=== PATIENT | male | born 1960 | race Caucasian/White ===

== ENCOUNTER 2021-10-31 11:52 | Emergency (ER) | payer MEDICARE, MEDICAID ==
[~2021-10-31] VITALS: Ht 190.5 cm; Wt 154.6 kg
[2021-10-31 12:52] LABS: BASOPHILS # (AUTO) 0.1 X10'3 (0-0.2); EOSINOPHILS # (AUTO) 0.4 X10'3 (0-0.9); EOSINOPHILS % (AUTO) 4.2 % (0-6); HEMATOCRIT 51.8 % (42.0-52.0); HEMOGLOBIN 17.6 g/dl (14.0-17.9); LYMPHOCYTES # (AUTO) 2.1 X10'3 (1.1-4.8); LYMPHOCYTES % (AUTO) 22.8 % (21-51); MEAN CORPUSCULAR HEMOGLOBIN 29.8 PG (27.0-31.0); MEAN CORPUSCULAR HGB CONC 33.9 g/dL (33.0-36.5); MEAN CORPUSCULAR VOLUME 87.9 FL (78-98); MEAN PLATELET VOLUME 6.7 FL (7.4-10.4); MONOCYTES # (AUTO) 0.9 X10'3 (0-0.9); MONOCYTES % (AUTO) 9.2 % (2-12); NEUTROPHILS # (AUTO) 5.9 X10'3 (1.8-7.7); NEUTROPHILS % (AUTO) 62.8 % (42-75); PLATELET COUNT 438 X10'3 (140-440); RED BLOOD COUNT 5.89 X10'6 (4.70-6.10); RED CELL DISTRIBUTION WIDTH 14.2 % (11.5-14.5); WHITE BLOOD COUNT 9.4 X10'3 (4.5-11.0)
[2021-10-31 13:04] LABS: ALANINE AMINOTRANSFERASE 52 U/L (12-78); ALKALINE PHOSPHATASE 73 IU/L (46-116); ANION GAP 11 (8-16); ASPARTATE AMINO TRANSFERASE 32 U/L (10-37); BILIRUBIN,TOTAL 0.5 MG/DL (0.1-1.0); BLOOD UREA NITROGEN 11 MG/DL (7-18); BUN/CREATININE RATIO 10.9 (5.4-32.0); CALCIUM 9.5 MG/DL (8.5-10.1); CHLORIDE 102 MMOL/L (99-107); CREATININE 1.01 MG/DL (0.60-1.10); GLUCOSE 104 MG/DL (70-104); LIPASE 118 U/L (73-393); POTASSIUM 4.6 MMOL/L (3.5-5.1); SODIUM 135 MMOL/L (135-145); TOTAL CARBON DIOXIDE 22.2 MMOL/L (24-32); TOTAL PROTEIN 8.2 G/DL (6.4-8.2); eGFR 76 ML/MIN
[2021-10-31 13:43] LABS: CLARITY,URINE CLEAR (Clear); COLOR,URINE YELLOW (Yellow); GLUCOSE, URINE NEGATIVE (Neg); KETONES,URINE NEGATIVE (Neg); LEUKOCYTE ESTERASE ,URINE NEGATIVE (Neg); NITRITES, URINE NEGATIVE (Neg); OCCULT BLOOD,URINE NEGATIVE (Neg); PROTEIN,URINE NEGATIVE (Neg); UROBILINOGEN,URINE 0.2 E.U/dL (0.2-1.0)
[2021-10-31 13:50] LABS: UA COLLECTION TYPE VOIDED
--- NOTE | 2021-10-31 14:20 | NUR ---
FLORES ALONSO AT BEDSIDE.
[2021-10-31] MEDS ORDERED: ondansetron 4mg rapidly disintigrating tab PO ONE (14:25)
[2021-10-31] MEDS ORDERED: HYDROcodone/acetaminophen 5mg/325mg tablet PO ONE (14:25)
[2021-10-31 14:57] VITALS: BP 123/103
== END 2021-10-31 15:04 | disposition home or self-care (01) ==
LOC: ER 11:53
DX: M54.50 Low back pain, unspecified (principal); Z90.49 Acquired absence of other specified parts of digestive tract
CPT/HCPCS: 36415; 80053; 81003; 83690; 85025; 99284

== ENCOUNTER 2022-04-13 04:55 | Emergency (ER) | payer MEDICARE, MEDICAID ==
[~2022-04-13] VITALS: Ht 193 cm; Wt 154.6 kg
--- NOTE | 2022-04-13 05:57 | NUR ---
Patient asleep, snoring, resting comfortably in bed.
[2022-04-13] MEDS ORDERED: HYDROcodone/acetaminophen 5mg/325mg tablet PO ONE (06:15)
[2022-04-13] MEDS ORDERED: IBUP-1985 PO (06:21)
[2022-04-13] MEDS ORDERED: TRAM1TAB7 PO (06:21)
--- NOTE | 2022-04-13 07:12 | NUR ---
pt able to transfer into wheelchair. Wheeled to bathroom. Pt unable to sit down due to pain and requested to be taken back to room. Patient complaining of pain and requesting to go home because he is uncomfortable and would be more comfortable at home. Dr. Villa updated.
[2022-04-13] MEDS ORDERED: morphine 4 MG/ML inj SYRINge IM ONE (07:35)
[2022-04-13 07:51] LABS: BASOPHILS # (AUTO) 0.1 X10'3 (0-0.2); BASOPHILS % (AUTO) 0.8 % (0-1); EOSINOPHILS # (AUTO) 0.2 X10'3 (0-0.9); EOSINOPHILS % (AUTO) 2.1 % (0-6); HEMATOCRIT 44.3 % (42.0-52.0); HEMOGLOBIN 15.1 g/dl (14.0-17.9); LYMPHOCYTES # (AUTO) 1.6 X10'3 (1.1-4.8); LYMPHOCYTES % (AUTO) 15.9 % (21-51); MEAN CORPUSCULAR HEMOGLOBIN 30.2 PG (27.0-31.0); MEAN CORPUSCULAR VOLUME 88.8 FL (78-98); MEAN PLATELET VOLUME 7.3 FL (7.4-10.4); MONOCYTES # (AUTO) 0.6 X10'3 (0-0.9); MONOCYTES % (AUTO) 6.1 % (2-12); NEUTROPHILS # (AUTO) 7.6 X10'3 (1.8-7.7); NEUTROPHILS % (AUTO) 75.1 % (42-75); PLATELET COUNT 392 X10'3 (140-440); RED BLOOD COUNT 4.99 X10'6 (4.70-6.10); RED CELL DISTRIBUTION WIDTH 15.1 % (11.5-14.5); WHITE BLOOD COUNT 10.1 X10'3 (4.5-11.0)
[2022-04-13 08:17] LABS: ALANINE AMINOTRANSFERASE 85 U/L (12-78); ALBUMIN 3.9 G/DL (3.4-5.0); ALBUMIN/GLOBULIN RATIO 1.1 (1.1-1.5); ALKALINE PHOSPHATASE 69 IU/L (46-116); ANION GAP 10 (8-16); ASPARTATE AMINO TRANSFERASE 69 U/L (10-37); BILIRUBIN,TOTAL 0.4 MG/DL (0.1-1.0); BLOOD UREA NITROGEN 14 MG/DL (7-18); BUN/CREATININE RATIO 10.9 (5.4-32.0); CALCIUM 9.3 MG/DL (8.5-10.1); CHLORIDE 101 MMOL/L (99-107); CREATININE 1.29 MG/DL (0.60-1.10); POTASSIUM 4.4 MMOL/L (3.5-5.1); SODIUM 137 MMOL/L (135-145); TOTAL CARBON DIOXIDE 26.4 MMOL/L (24-32); TOTAL PROTEIN 7.6 G/DL (6.4-8.2); eGFR 57 ML/MIN
[2022-04-13 08:20] LABS: GLUCOSE 122 MG/DL (70-104)
--- NOTE | 2022-04-13 08:21 | NUR ---
patients states pain is tolerable at this time. Refusing CT scan. States he does not think he would be able to tolerate lying flat. Dr. Villa aware.
[2022-04-13 08:51] VITALS: BP 130/92
== END 2022-04-13 09:08 | disposition home or self-care (01) ==
LOC: ER 04:55
DX: M54.31 Sciatica, right side (principal); G89.29 Other chronic pain; M25.551 Pain in right hip; J44.9 Chronic obstructive pulmonary disease, unspecified; F17.200 Nicotine dependence, unspecified, uncomplicated; Z98.890 Other specified postprocedural states; Z90.49 Acquired absence of other specified parts of digestive tract; Z79.899 Other long term (current) drug therapy
CPT/HCPCS: 36415; 80053; 85025; 96372; 99284; J2270

== ENCOUNTER 2022-04-17 23:16 | Emergency (ER) | payer MEDICARE, MEDICAID ==
[~2022-04-17] VITALS: Ht 193 cm; Wt 210.0 kg
[~2022-04-17 23:16] MED LIST: IBUP-1985 PO; TRAM1TAB7 PO
[2022-04-18] MEDS ORDERED: normal saline 1000ml 1,000 ML IV ONE (00:25)
[2022-04-18] MEDS ORDERED: orphenadrine citrate 60mg/2ml inj. IM ONE (00:25)
[2022-04-18] MEDS ORDERED: LORazepam 2 mg/ml vial IV ONE ×3 (00:25→05:00)
[2022-04-18] MEDS ORDERED: fentaNYL/PF 50MCG/1 ML 2ML syringe IV ONE (00:25)
[2022-04-18] MEDS ORDERED: acetaminophen 325mg tablet PO ONE (00:25)
[2022-04-18 00:52] LABS: BASOPHILS # (AUTO) 0.1 X10'3 (0-0.2); BASOPHILS % (AUTO) 0.9 % (0-1); EOSINOPHILS # (AUTO) 0.3 X10'3 (0-0.9); EOSINOPHILS % (AUTO) 2.6 % (0-6); HEMATOCRIT 45.3 % (42.0-52.0); LYMPHOCYTES # (AUTO) 1.6 X10'3 (1.1-4.8); LYMPHOCYTES % (AUTO) 13.3 % (21-51); MEAN CORPUSCULAR HEMOGLOBIN 29.6 PG (27.0-31.0); MEAN CORPUSCULAR HGB CONC 33.2 g/dL (33.0-36.5); MEAN CORPUSCULAR VOLUME 89.1 FL (78-98); MONOCYTES # (AUTO) 0.8 X10'3 (0-0.9); MONOCYTES % (AUTO) 6.9 % (2-12); NEUTROPHILS % (AUTO) 76.3 % (42-75); PLATELET COUNT 351 X10'3 (140-440); RED BLOOD COUNT 5.09 X10'6 (4.70-6.10); WHITE BLOOD COUNT 11.8 X10'3 (4.5-11.0)
[2022-04-18 01:05] LABS: ALANINE AMINOTRANSFERASE 61 U/L (12-78); ALBUMIN 3.9 G/DL (3.4-5.0); ALKALINE PHOSPHATASE 66 IU/L (46-116); ANION GAP 12 (8-16); ASPARTATE AMINO TRANSFERASE 61 U/L (10-37); BILIRUBIN,TOTAL 0.5 MG/DL (0.1-1.0); BLOOD UREA NITROGEN 16 MG/DL (7-18); BUN/CREATININE RATIO 12.4 (5.4-32.0); CALCIUM 9.4 MG/DL (8.5-10.1); CHLORIDE 102 MMOL/L (99-107); CREATININE 1.29 MG/DL (0.60-1.10); GLUCOSE 115 MG/DL (70-104); SODIUM 138 MMOL/L (135-145); TOTAL CARBON DIOXIDE 24.1 MMOL/L (24-32); TOTAL PROTEIN 7.8 G/DL (6.4-8.2); eGFR 57 ML/MIN
[2022-04-18 01:18] LABS: POTASSIUM 4.5 MMOL/L (3.5-5.1)
[2022-04-18] MEDS ORDERED: morphine 4 MG/ML inj SYRINge IV ONE (02:50)
[2022-04-18 04:18] LABS: CLARITY,URINE CLEAR (Clear); COLOR,URINE YELLOW (Yellow); GLUCOSE, URINE NEGATIVE (Neg); KETONES,URINE NEGATIVE (Neg); LEUKOCYTE ESTERASE ,URINE NEGATIVE (Neg); NITRITES, URINE NEGATIVE (Neg); OCCULT BLOOD,URINE NEGATIVE (Neg); PH,URINE 6.5 (4.8-8.0); PROTEIN,URINE NEGATIVE (Neg); UROBILINOGEN,URINE 0.2 E.U/dL (0.2-1.0)
[2022-04-18 04:25] LABS: UA COLLECTION TYPE URINAL
[2022-04-18 04:34] LABS: URINE AMPHETAMINE SCREEN POSITIVE (Neg); URINE BARBITUATE SCREEN NEGATIVE (Neg); URINE BENZODIAZEPINES SCREEN NEGATIVE (Neg); URINE CANNABINOID SCREEN NEGATIVE (Neg); URINE COCAINE SCREEN NEGATIVE (Neg); URINE METHADONE SCREEN NEGATIVE (Neg); URINE OPIATE SCREEN NEGATIVE (Neg); URINE PHENCYCLIDINE SCREEN NEGATIVE (Neg)
[2022-04-18] MEDS ORDERED: diphenhydrAMINE 50 mg/ml inj IV ONE (05:00)
--- NOTE | 2022-04-18 05:15 | NUR ---
Patient scooted himself to edge of bed, became frustrated after demanding staff to help him back in bed. Staff explained to him that we were getting him a hospital bed and required more help to move him. Patient becae aggrivated and became yelling and cussing at nurse and other staff. Security paged and standing outside the room. Patient moved safely to hospital bed and educated on inappropriate behavior.
[2022-04-18] MEDS ORDERED: ketorolac trometh. 30mg/ml inj. IV ONE (05:40)
[2022-04-18] MEDS ORDERED: HYDR-3965 PO (05:56)
[2022-04-18] MEDS ORDERED: CYCL-1 PO (05:56)
--- NOTE | 2022-04-18 07:16 | NUR ---
PT IS SNORING VERY LOUDLY AND WONT WAKE UP EASILY. VSS DEFERRED UNTIL PT WAKES UP. DOES NOT APPEAR TO BE IN DISTRESS.
--- NOTE | 2022-04-18 07:57 | NUR ---
electroencephalograph technologist called. Pt's weight is too great to be able to get an MRI here or at [facility]. Pt may be able to get MRI at [facility] open MRI. Scribe informed.
[2022-04-18 11:33] VITALS: BP 138/104
== END 2022-04-18 12:58 | disposition home or self-care (01) ==
LOC: ER 23:16
DX: G89.29 Other chronic pain (principal); M54.59 Other low back pain; J44.9 Chronic obstructive pulmonary disease, unspecified; Z90.49 Acquired absence of other specified parts of digestive tract; Z79.899 Other long term (current) drug therapy
CPT/HCPCS: 36415; 80053; 80305; 81003; 85025; 96361; 96372; 96374; 96375; 96376; 99285; J1200; J1885; J2060; J2270; J2360; J3010; J7030

== ENCOUNTER 2022-04-22 06:06 | Emergency (ER) | payer MEDICARE, MEDICAID ==
[~2022-04-22] VITALS: Ht 193 cm; Wt 181.8 kg
[~2022-04-22 06:06] MED LIST changes: +CYCL-1 PO; +HYDR-3965 PO
[2022-04-22] MEDS ORDERED: LORazepam 1 MG tablet PO ONE (06:35)
[2022-04-22] MEDS ORDERED: oxyCODONE/APAP 10/325mg tablet PO ONE (06:35)
[2022-04-22 08:12] VITALS: BP 163/113
--- NOTE | 2022-04-22 08:12 | NUR ---
Pt is asleep sonorously
--- NOTE | 2022-04-22 10:30 | NUR ---
Multiple attempts by RN to rouse pt, pt is still soundly asleep
--- NOTE | 2022-04-22 10:35 | NUR ---
Pt's mother Ilda [phone] called to advise to call her when pt is being picked up by ambulance
--- NOTE | 2022-04-22 11:24 | NUR ---
Moved pt to [facility], pt is still sound asleep, not rousable for ambulance order picker
== END 2022-04-22 13:28 | disposition home or self-care (01) ==
LOC: ER 06:07
DX: M54.50 Low back pain, unspecified (principal); G89.29 Other chronic pain; J44.9 Chronic obstructive pulmonary disease, unspecified; E78.00 Pure hypercholesterolemia, unspecified; Z90.49 Acquired absence of other specified parts of digestive tract
CPT/HCPCS: 99284; A4615

== ENCOUNTER 2022-11-22 06:41 | Inpatient (IN) | payer MEDICARE, MEDICAID ==
[~2022-11-22] VITALS: Ht 193 cm; Wt 157.7 kg
[~2022-11-22 06:41] MED LIST changes: -HYDR-3965 PO
[2022-11-22] MEDS ORDERED: vancomycin/NS 1 GM ADD-VANTAGE 250 ML IV ONE (07:05)
[2022-11-22] MEDS ORDERED: piperacillin/tazo 3.375gm/50ml 50 ML IV ONE (07:05)
[2022-11-22 08:01] LABS: BASOPHILS # (AUTO) 0.1 X10'3 (0-0.2); BASOPHILS % (AUTO) 0.7 % (0-1); EOSINOPHILS # (AUTO) 0.4 X10'3 (0-0.9); EOSINOPHILS % (AUTO) 4.8 % (0-6); HEMATOCRIT 43.3 % (42.0-52.0); HEMOGLOBIN 13.9 g/dl (14.0-17.9); LYMPHOCYTES # (AUTO) 1.1 X10'3 (1.1-4.8); LYMPHOCYTES % (AUTO) 13.5 % (21-51); MEAN CORPUSCULAR HEMOGLOBIN 28.9 PG (27.0-31.0); MEAN CORPUSCULAR HGB CONC 32.1 g/dL (33.0-36.5); MEAN CORPUSCULAR VOLUME 89.9 FL (78-98); MEAN PLATELET VOLUME 6.8 FL (7.4-10.4); MONOCYTES # (AUTO) 0.7 X10'3 (0-0.9); NEUTROPHILS # (AUTO) 6.2 X10'3 (1.8-7.7); PLATELET COUNT 342 X10'3 (140-440); RED BLOOD COUNT 4.81 X10'6 (4.70-6.10); RED CELL DISTRIBUTION WIDTH 16.2 % (11.5-14.5); WHITE BLOOD COUNT 8.5 X10'3 (4.5-11.0)
[2022-11-22 08:22] LABS: ALANINE AMINOTRANSFERASE 45 U/L (12-78); ALBUMIN 3.1 G/DL (3.4-5.0); ALBUMIN/GLOBULIN RATIO 0.7 (1.1-1.5); ALKALINE PHOSPHATASE 76 IU/L (46-116); ANION GAP 9 (8-16); ASPARTATE AMINO TRANSFERASE 39 U/L (10-37); BILIRUBIN,TOTAL 0.3 MG/DL (0.1-1.0); BLOOD UREA NITROGEN 13 MG/DL (7-18); BUN/CREATININE RATIO 12.6 (10.0-20.0); CHLORIDE 103 MMOL/L (99-107); CREATININE 1.03 MG/DL (0.60-1.10); GLUCOSE 112 MG/DL (70-104); POTASSIUM 4.1 MMOL/L (3.5-5.1); SODIUM 135 MMOL/L (135-145); TOTAL CARBON DIOXIDE 23.1 MMOL/L (24-32); TOTAL PROTEIN 7.3 G/DL (6.4-8.2); eCRCL 94 ML/MIN; eGFR 74 ML/MIN
[2022-11-22 08:32] LABS: PRO BRAIN NATRIURETIC PEPTIDE < 30 PG/ML (0-125)
[2022-11-22] MEDS ORDERED: acetaminophen 325mg tablet PO ONE (08:35)
--- NOTE | 2022-11-22 11:11 | NUR ---
Unable to obtain consistent vascular access due to patient's vasculature. Tracie coleman late this morning. Pharmacy and MD aware. Vanco given as scheduled.
[2022-11-22] MEDS ORDERED: potassium Cl 20 mEq SR tablet PO PRN ×2 (11:40)
[2022-11-22] MEDS ORDERED: acetaminophen 325mg tablet PO PRN ×2 (11:40)
[2022-11-22] MEDS ORDERED: HYDROmorphone/PF 0.2 MG/ML SYRINGE IV PRN (11:40)
[2022-11-22] MEDS: normal saline 1000ml 1,000 ML IV SCH ×2 (11:40→17:59)
[2022-11-22] MEDS ORDERED: magnesium hydroxide 30ml (MOM) UD suspension PO PRN (11:40)
[2022-11-22] MEDS ORDERED: magnesium Cl slow-release 64mg tablet PO PRN (11:40)
[2022-11-22] MEDS ORDERED: acetaminophen 650mg rectal suppository RC PRN (11:40)
[2022-11-22] MEDS ORDERED: mag hydrox/Alum hydrox/simeth 30ml oral suspension PO PRN (11:40)
[2022-11-22] MEDS ORDERED: magnesium 4gm in 100ml NS 100 ML IV PRN (11:40)
[2022-11-22] MEDS ORDERED: ondansetron 4mg rapidly disintigrating tab PO PRN (11:40)
[2022-11-22] MEDS ORDERED: magnesium 2GM in 50ml NS 50 ML IV PRN (11:40)
[2022-11-22] MEDS ORDERED: HYDROcodone/acetaminophen 5mg/325mg tablet PO PRN (11:40)
[2022-11-22] MEDS ORDERED: potassium Cl 40MEQ/1/2NS 520ml 520 ML IV PRN (11:40)
[2022-11-22] MEDS ORDERED: ondansetron/PF 4mg/2ml inj IV PRN (11:40)
--- NOTE | 2022-11-22 12:10 | NUR ---
Pt given snack of water and jayson crackers.
[2022-11-22 12:43] LABS: HEMOGLOBIN A1C 6.6 % (4.5-6.2)
--- NOTE | 2022-11-22 12:55 | NUR ---
Echo at bedside.
[2022-11-22 13:05] LABS: CHOL/HDL RATIO 4.2 (0.00-4.99); CHOLESTEROL 176 MG/DL (0-200); HDL CHOLESTEROL 42 MG/DL (35-60); LDL CHOLESTEROL 106 MG/DL (50-100); PRO BRAIN NATRIURETIC PEPTIDE 114 PG/ML (0-125); THYROID STIMULATING HORMONE 6.18 ulU/ml (0.34-4.50); TRIGLYCERIDES 178 MG/DL (20-135)
--- NOTE | 2022-11-22 14:00 | NUR ---
PT ASKING TO LEAVE, I EXPLAINED THE RISKS OF LEAVING AMA UP TO AND INCLUDING . PT VERALIZED UNDERSTANDING AND STATED "I HAVE A HOME HEALTH NURSE AND CAN GET ANTIBIOTICS", REPORT GIVEN TO TORRIE BOWMAN, PRIMARY NURSE
--- NOTE | 2022-11-22 14:11 | NUR ---
Pt would like to leave AMA. Pt is receiving IV ABX for bilat leg cellulitis. Pt educated regarding need for continued IV antibiotic therapy. Pt stating, "This isn't the first time I've left against medical advice". MD Wade and Dr. Pope paged regarding situation.
[2022-11-22] MEDS: vancomycin/NS 1 GM ADD-VANTAGE 250 ML IV SCH ×2 (14:38→23:00)
[2022-11-22] MEDS: HYDROmorphone inj. 0.5 MG/0.5 ML DISP.SYRIN IV PRN (14:40)
[2022-11-22 15:24] LABS: BILIRUBIN,URINE NEGATIVE (Neg); CLARITY,URINE CLEAR (Clear); COLOR,URINE YELLOW (Yellow); GLUCOSE, URINE NEGATIVE (Neg); KETONES,URINE NEGATIVE (Neg); LEUKOCYTE ESTERASE ,URINE NEGATIVE (Neg); NITRITES, URINE NEGATIVE (Neg); OCCULT BLOOD,URINE NEGATIVE (Neg); PH,URINE 5.5 (4.8-8.0); PROTEIN,URINE NEGATIVE (Neg); UROBILINOGEN,URINE 0.2 E.U/dL (0.2-1.0)
[2022-11-22 15:27] LABS: UA COLLECTION TYPE CLN CATCH MIDSTREAM
--- NOTE | 2022-11-22 16:50 | NUR ---
Patient in room ORTHO 4018. I have received report from GRACIE Walls and had the opportunity to ask questions and assume patient care.
[2022-11-22 17:00] VITALS: BP 134/86; PULSE 78; RESP 15; RESP 18; TEMP 97.4; O2SAT 94
[2022-11-22] MEDS: K and/or MAG REPLACEMENT MC SCH (17:37)
--- NOTE | 2022-11-22 18:10 | NUR ---
Patient in room ORTHO 4018. I have received report from GRACIE Cronin and had the opportunity to ask questions and assume patient care.
--- NOTE | 2022-11-22 18:20 | NUR ---
Problems reprioritized. Patient report given, questions answered & plan of care reviewed with GRACIE Figueroa.
[2022-11-22] MEDS ORDERED: NO HOME MEDS (18:38)
[2022-11-22] MEDS: HYDROcodone/acetaminophen 10/325mg tab PO PRN (18:56)
[2022-11-22] MEDS ORDERED: LidoCAINE 2% Topical Jelly 11mL syringe TOP ONE (19:35)
[2022-11-22] MEDS ORDERED: ipratropium/albuterol 3ml nebule NEB PRN (19:35)
[2022-11-22 20:00] VITALS: RESP 18; O2SAT 94
[2022-11-22] MEDS: docusate sod 100mg capsule PO SCH (20:00)
[2022-11-22 20:13] VITALS: BP 133/87
[2022-11-22] MEDS: furosemide 40mg/4ml inj IV SCH (20:13)
[2022-11-22] MEDS: heparin, porcine 5000 units/ml vial SQ SCH (20:13)
[2022-11-22] MEDS: temazepam 15mg capsule PO PRN (21:22)
[2022-11-22 22:00] VITALS: BP 124/80; PULSE 101; RESP 22; TEMP 98.6; O2SAT 96
[2022-11-22 22:58] VITALS: PULSE 88; RESP 18; O2SAT 92
[2022-11-22] MEDS: ipratropium/albuterol 3ml nebule NEB SCH (22:58)
[2022-11-22 23:09] VITALS: PULSE 87; RESP 18
[2022-11-23] VITALS (14 sets, daily range): BP systolic 138–154; BP diastolic 73–83; PULSE 84–111; RESP 16–22; TEMP 97.9–98.9; O2SAT 91–100
[2022-11-23] MEDS: piperacillin/tazo 3.375gm/50ml 50 ML IV SCH ×3 (00:40→17:06)
[2022-11-23] MEDS: HYDROcodone/acetaminophen 10/325mg tab PO PRN ×3 (04:14→17:07)
[2022-11-23] MEDS ORDERED: VANCOMYCIN LEVEL IV ONE (06:30)
--- NOTE | 2022-11-23 06:45 | NUR ---
Patient in room ORTHO 4018. I have received report from GRACIE Figueroa and had the opportunity to ask questions and assume patient care.
[2022-11-23 07:27] LABS: BASOPHILS # (AUTO) 0.1 X10'3 (0-0.2); BASOPHILS % (AUTO) 0.9 % (0-1); EOSINOPHILS # (AUTO) 0.5 X10'3 (0-0.9); EOSINOPHILS % (AUTO) 5.7 % (0-6); HEMATOCRIT 40.3 % (42.0-52.0); HEMOGLOBIN 13.2 g/dl (14.0-17.9); LYMPHOCYTES # (AUTO) 1.1 X10'3 (1.1-4.8); LYMPHOCYTES % (AUTO) 13.5 % (21-51); MEAN CORPUSCULAR HEMOGLOBIN 28.8 PG (27.0-31.0); MEAN CORPUSCULAR HGB CONC 32.7 g/dL (33.0-36.5); MEAN PLATELET VOLUME 6.9 FL (7.4-10.4); MONOCYTES # (AUTO) 0.7 X10'3 (0-0.9); MONOCYTES % (AUTO) 8.4 % (2-12); NEUTROPHILS # (AUTO) 5.8 X10'3 (1.8-7.7); NEUTROPHILS % (AUTO) 71.5 % (42-75); PLATELET COUNT 358 X10'3 (140-440); RED BLOOD COUNT 4.59 X10'6 (4.70-6.10); RED CELL DISTRIBUTION WIDTH 15.3 % (11.5-14.5); WHITE BLOOD COUNT 8.1 X10'3 (4.5-11.0)
[2022-11-23 07:48] LABS: ALANINE AMINOTRANSFERASE 39 U/L (12-78); ALBUMIN/GLOBULIN RATIO 0.8 (1.1-1.5); ALKALINE PHOSPHATASE 72 IU/L (46-116); ANION GAP 7 (8-16); ASPARTATE AMINO TRANSFERASE 35 U/L (10-37); BILIRUBIN,TOTAL 0.5 MG/DL (0.1-1.0); BLOOD UREA NITROGEN 12 MG/DL (7-18); BUN/CREATININE RATIO 11.8 (10.0-20.0); CALCIUM 9.2 MG/DL (8.5-10.1); CHLORIDE 100 MMOL/L (99-107); CREATININE 1.02 MG/DL (0.60-1.10); GLUCOSE 111 MG/DL (70-104); MAGNESIUM 1.9 MG/DL (1.5-2.4); POTASSIUM 4.1 MMOL/L (3.5-5.1); SODIUM 134 MMOL/L (135-145); TOTAL CARBON DIOXIDE 26.9 MMOL/L (24-32); TOTAL PROTEIN 6.9 G/DL (6.4-8.2); VANCOMYCIN,TROUGH 10.8 ug/mL (10.0-20.0); eCRCL 95 ML/MIN; eGFR 74 ML/MIN
[2022-11-23] MEDS: ipratropium/albuterol 3ml nebule NEB SCH ×5 (07:57→22:59)
[2022-11-23] MEDS: K and/or MAG REPLACEMENT MC SCH ×2 (08:00→20:00)
[2022-11-23] MEDS: docusate sod 100mg capsule PO SCH ×2 (08:00→20:26)
[2022-11-23] MEDS: vancomycin/NS 1 GM ADD-VANTAGE 250 ML IV SCH (08:24)
[2022-11-23] MEDS: furosemide 40mg/4ml inj IV SCH ×2 (08:29→20:26)
[2022-11-23] MEDS: heparin, porcine 5000 units/ml vial SQ SCH ×2 (08:29→20:27)
[2022-11-23] MEDS ORDERED: MESSAGE TO PHARMACY PO ONE (13:05)
[2022-11-23] MEDS ORDERED: dextrose 50%-water 50ml dispensing syringe IV PRN ×2 (13:05)
[2022-11-23] MEDS ORDERED: glucagon, human recombinant 1mg kit SUBCUT PRN (13:05)
[2022-11-23] MEDS ORDERED: insulin Lispro (HumaLOG) vial - multi-dose SQ SCH (13:05)
[2022-11-23] MEDS ORDERED: DEXTROSE 15 GM of carb/4 tabs (each vial/BOTTLE has 4 tablets) PO PRN ×2 (13:05)
[2022-11-23] MEDS ORDERED: iohexol 300mg/ml 100ml inj. ONE (13:29)
[2022-11-23] MEDS: HYDROmorphone inj. 0.5 MG/0.5 ML DISP.SYRIN IV PRN ×2 (14:05→14:06)
[2022-11-23] MEDS: VANCOmycin 1250MG/NS 250ml Bag 250 ML IV SCH ×2 (14:16→22:30)
--- NOTE | 2022-11-23 14:57 | NUR ---
Initial: Pt admit for BLE cellulitis superficial wound culture grew MRSA, bilateral pedal edema, lower urinary outlet obstruction, COPD exacerbation per EMR. Pt presents with an A1c of 6.6% this admit with no prior DM hx in EMR. Per d/w RN, RN to notify physician. Will monitor for diabetes diagnosis per physician in order to provided nutrition diabetes education to pt. Pt is currently on a carbohydrate controlled/heart healthy diet per EMR. PO intake ~75% for first two meals including 100% for second meal which met 61% of estimated kcal needs and 67% of estimated protein needs. Recommend double protein to better meet estimated needs given higher nutrition requirement for height; dietary notified. LBM on 11/22 per pt reports refusing bowel care per EMR. Will continue to follow and make recommendations as appropriate. Recommendations: 1. liberalize carbohydrate controlled restriction given good BG control and not on glycemic protocol 2.Double protein BLD; to better help meet estimated needs given height 3.monitor PO intake and need for ONS 4.routine bowel care 5.scaled wt this admit ; subsequent weekly scaled wts 6.DM diet ed once pt receives diagnosis by physician, A1c of 6.6% with no prior DM hx in EMR Addendum: 11/23/22 at [address] Amended: Links added.
--- NOTE | 2022-11-23 15:05 | NUR ---
PRESSURE ULCER EDUCATION: DEFINITION: A pressure ulcer is an area of skin that breaks down when you stay in one position too long. The constant pressure against the skin reduces the blood flow to that area and the affected tissue dies. CAUSES: "Being bedridden or in a wheelchair "Fragile skin "Having a chronic condition, such as diabetes or vascular disease "Inability to move certain parts of your body without assistance "Older age "Incontinence of urine or stool SYMPTOMS: "A reddened area that DOES NOT turn white when pressed on - this can be the beginning of a pressure ulcer "A blister, deep sore or a crater - these can be advanced pressure ulcers FIRST AID: "Relieve the pressure on this area "Keep the area clean and dry "Call your primary doctor if you see any of the above symptoms "DO NOT massage the area "DO NOT use a donut shaped or ring shaped pillow- these actually interfere with the blood flow and cause complications PREVENTION: "Check for pressure ulcers everyday "Change position at least every two hours to relieve pressure "Use items that help relieve pressure- pillows, sheepskin, foam padding, and powders. "Keep skin clean and dry "Eat healthy well balanced meals "Exercise daily IF YOU SEE ANY OF THESE SYMPTOMS WHILE IN THE HOSPITAL - TELL YOUR NURSE IMMEDIATELY. IF YOU SEE ANY OF THESE SYMPTOMS WHILE AT HOME OR HAVE ANY QUESTIONS OR CONCERNS ABOUT PRESSURE ULCERS - CALL YOUR PRIMARY DOCTOR IMMEDIATELY. Addendum: 11/23/22 at 1506 by Marilyn Montero LVN Amended: Links added.
--- NOTE | 2022-11-23 18:20 | NUR ---
Problems reprioritized. Patient report given, questions answered & plan of care reviewed with GRACIE Sanders.
[2022-11-23] MEDS: temazepam 15mg capsule PO PRN (20:36)
[2022-11-23] MEDS: insulin glargine (Lantus) pen - multi-dose SQ SCH (21:00)
[2022-11-24] VITALS (12 sets, daily range): BP systolic 100–148; BP diastolic 67–100; PULSE 85–109; RESP 15–19; TEMP 98.1–98.5; O2SAT 88–95
[2022-11-24] MEDS: HYDROcodone/acetaminophen 10/325mg tab PO PRN ×4 (00:50→21:10)
--- NOTE | 2022-11-24 02:03 | NUR ---
MSG'D PHARMACY REGARDING 2400 DOSE OF ZOSYN DUE. EARLY SHIFT DOSE DID NOT FINISH INFUSING UNTIL 2200 AND PHARMACY ADVISED ME TO SKIP THIS DOSE AND RESUME SCHEDULE WITH MORNING DOSE.
--- NOTE | 2022-11-24 06:19 | NUR ---
Problems reprioritized. Patient report given, questions answered & plan of care reviewed with LEIDA BOWMAN.
[2022-11-24 06:32] LABS: BASOPHILS # (AUTO) 0.1 X10'3 (0-0.2); EOSINOPHILS # (AUTO) 0.5 X10'3 (0-0.9); EOSINOPHILS % (AUTO) 5.3 % (0-6); HEMATOCRIT 43.4 % (42.0-52.0); HEMOGLOBIN 14.3 g/dl (14.0-17.9); LYMPHOCYTES # (AUTO) 1.2 X10'3 (1.1-4.8); LYMPHOCYTES % (AUTO) 13.8 % (21-51); MEAN CORPUSCULAR HEMOGLOBIN 28.9 PG (27.0-31.0); MEAN CORPUSCULAR HGB CONC 32.9 g/dL (33.0-36.5); MEAN CORPUSCULAR VOLUME 87.9 FL (78-98); MONOCYTES # (AUTO) 0.8 X10'3 (0-0.9); MONOCYTES % (AUTO) 9.4 % (2-12); NEUTROPHILS # (AUTO) 6.2 X10'3 (1.8-7.7); NEUTROPHILS % (AUTO) 70.5 % (42-75); PLATELET COUNT 393 X10'3 (140-440); RED BLOOD COUNT 4.94 X10'6 (4.70-6.10); RED CELL DISTRIBUTION WIDTH 15.4 % (11.5-14.5); WHITE BLOOD COUNT 8.7 X10'3 (4.5-11.0)
[2022-11-24 06:35] LABS: ALANINE AMINOTRANSFERASE 40 U/L (12-78); ALBUMIN 3.2 G/DL (3.4-5.0); ALBUMIN/GLOBULIN RATIO 0.7 (1.1-1.5); ALKALINE PHOSPHATASE 73 IU/L (46-116); ANION GAP 5 (8-16); ASPARTATE AMINO TRANSFERASE 28 U/L (10-37); BILIRUBIN,TOTAL 0.5 MG/DL (0.1-1.0); BLOOD UREA NITROGEN 16 MG/DL (7-18); BUN/CREATININE RATIO 13.4 (10.0-20.0); CALCIUM 9.6 MG/DL (8.5-10.1); CHLORIDE 100 MMOL/L (99-107); CREATININE 1.19 MG/DL (0.60-1.10); GLUCOSE 112 MG/DL (70-104); MAGNESIUM 2.1 MG/DL (1.5-2.4); SODIUM 135 MMOL/L (135-145); TOTAL CARBON DIOXIDE 30.4 MMOL/L (24-32); TOTAL PROTEIN 7.7 G/DL (6.4-8.2); eCRCL 81 ML/MIN; eGFR 62 ML/MIN
--- NOTE | 2022-11-24 06:53 | NUR ---
Patient in room ORTHO 4018. I have received report from ZULEMA BOWMAN and had the opportunity to ask questions and assume patient care.
[2022-11-24] MEDS: ipratropium/albuterol 3ml nebule NEB SCH ×5 (07:00→22:38)
[2022-11-24] MEDS: piperacillin/tazo 3.375gm/50ml 50 ML IV SCH ×3 (07:48→15:11)
[2022-11-24] MEDS: VANCOmycin 1250MG/NS 250ml Bag 250 ML IV SCH ×3 (07:48→23:12)
[2022-11-24] MEDS: heparin, porcine 5000 units/ml vial SQ SCH ×2 (07:50→21:07)
[2022-11-24] MEDS: docusate sod 100mg capsule PO SCH ×2 (07:50→21:07)
[2022-11-24] MEDS: furosemide 40mg/4ml inj IV SCH ×2 (07:50→21:08)
[2022-11-24] MEDS: K and/or MAG REPLACEMENT MC SCH ×2 (08:00→20:00)
[2022-11-24] MEDS ORDERED: VANCOMYCIN LEVEL IV ONE ×2 (14:30→22:30)
[2022-11-24] MEDS: polyethylene glycol 3350 17gm powd pack PO SCH (15:21)
--- NOTE | 2022-11-24 18:38 | NUR ---
Problems reprioritized. Patient report given to radha lynn, questions answered & plan of care reviewed with .
[2022-11-24] MEDS: insulin glargine (Lantus) pen - multi-dose SQ SCH (21:00)
[2022-11-25] MEDS: piperacillin/tazo 3.375gm/50ml 50 ML IV SCH ×2 (00:26→07:48)
--- NOTE | 2022-11-25 06:22 | NUR ---
Patient in room ORTHO 4018. I have received report from ZULEMA BOWMAN and had the opportunity to ask questions and assume patient care.
[2022-11-25 06:37] LABS: BASOPHILS # (AUTO) 0.1 X10'3 (0-0.2); BASOPHILS % (AUTO) 0.8 % (0-1); EOSINOPHILS # (AUTO) 0.4 X10'3 (0-0.9); EOSINOPHILS % (AUTO) 5.3 % (0-6); HEMATOCRIT 44.2 % (42.0-52.0); HEMOGLOBIN 14.9 g/dl (14.0-17.9); LYMPHOCYTES # (AUTO) 1.4 X10'3 (1.1-4.8); LYMPHOCYTES % (AUTO) 16.6 % (21-51); MEAN CORPUSCULAR HEMOGLOBIN 29.4 PG (27.0-31.0); MEAN CORPUSCULAR HGB CONC 33.7 g/dL (33.0-36.5); MEAN CORPUSCULAR VOLUME 87.4 FL (78-98); MEAN PLATELET VOLUME 6.9 FL (7.4-10.4); MONOCYTES # (AUTO) 0.7 X10'3 (0-0.9); MONOCYTES % (AUTO) 8.1 % (2-12); NEUTROPHILS # (AUTO) 5.7 X10'3 (1.8-7.7); NEUTROPHILS % (AUTO) 69.2 % (42-75); PLATELET COUNT 397 X10'3 (140-440); RED BLOOD COUNT 5.06 X10'6 (4.70-6.10); RED CELL DISTRIBUTION WIDTH 15.3 % (11.5-14.5); WHITE BLOOD COUNT 8.2 X10'3 (4.5-11.0)
--- NOTE | 2022-11-25 06:37 | NUR ---
Problems reprioritized. Patient report given, questions answered & plan of care reviewed with LEIDA BOWMAN.
[2022-11-25 06:54] LABS: ALANINE AMINOTRANSFERASE 43 U/L (12-78); ALBUMIN 3.2 G/DL (3.4-5.0); ALBUMIN/GLOBULIN RATIO 0.7 (1.1-1.5); ANION GAP 8 (8-16); ASPARTATE AMINO TRANSFERASE 34 U/L (10-37); BILIRUBIN,TOTAL 0.6 MG/DL (0.1-1.0); BLOOD UREA NITROGEN 21 MG/DL (7-18); BUN/CREATININE RATIO 16.5 (10.0-20.0); CALCIUM 9.8 MG/DL (8.5-10.1); CHLORIDE 99 MMOL/L (99-107); CREATININE 1.27 MG/DL (0.60-1.10); GLUCOSE 93 MG/DL (70-104); MAGNESIUM 2.2 MG/DL (1.5-2.4); POTASSIUM 3.7 MMOL/L (3.5-5.1); SODIUM 138 MMOL/L (135-145); TOTAL CARBON DIOXIDE 31.3 MMOL/L (24-32); TOTAL PROTEIN 7.8 G/DL (6.4-8.2); eCRCL 76 ML/MIN; eGFR 58 ML/MIN
[2022-11-25 06:55] LABS: ALKALINE PHOSPHATASE 71 IU/L (46-116)
[2022-11-25] MEDS ORDERED: VANCOMYCIN 750MG IV in NS 250 ML IV SCH (07:00)
[2022-11-25] MEDS: furosemide 40mg/4ml inj IV SCH (07:49)
[2022-11-25] MEDS: polyethylene glycol 3350 17gm powd pack PO SCH (07:49)
[2022-11-25] MEDS: heparin, porcine 5000 units/ml vial SQ SCH (07:49)
[2022-11-25] MEDS: docusate sod 100mg capsule PO SCH (07:50)
[2022-11-25 08:00] VITALS: BP 136/78; PULSE 90; RESP 19; TEMP 97.9; O2SAT 91
[2022-11-25] MEDS: K and/or MAG REPLACEMENT MC SCH (08:00)
[2022-11-25 08:03] VITALS: PULSE 111; RESP 20; O2SAT 90
[2022-11-25] MEDS: ipratropium/albuterol 3ml nebule NEB SCH ×2 (08:03→11:00)
[2022-11-25 08:14] VITALS: PULSE 102; RESP 20
--- NOTE | 2022-11-25 09:00 | NUR ---
PAGER ID: [phone] MESSAGE: GRACIE CASAREZ, ORTHO, [id number], RE: [id number]. PT. OVER WEIGHT LIMIT FOR MRI. RADAMES
[2022-11-25 09:21] VITALS: RESP 14; O2SAT 91
[2022-11-25 10:00] VITALS: BP 149/87; PULSE 101; RESP 14; TEMP 97.9; O2SAT 88
[2022-11-25] MEDS ORDERED: POTA-206 PO (12:07)
[2022-11-25] MEDS ORDERED: LINE600T14 PO (12:07)
[2022-11-25] MEDS ORDERED: FURO-150 PO (12:07)
--- NOTE | 2022-11-25 14:10 | NUR ---
PT. ALERT AND STABLE UPON DISCHARGE. PT. IV CANNULA WHOLE AND INTACT UPON REMOVAL. PT. ESCORTED SAFELY INTO [place] TO GO BACK HOME. PT. LEFT WITH ALL BELONGINGS. PT. EDUCATED ON NEWLY DIAGNOSED DIABETES SURVIVALS SKILLS, NEW MEDS, AND HOME 02. PT. EDUCATED TO FOLLOW UP WITH PRIMARY CARE PROVIDER IN 1 WEEK. WOUND CARE PROVIDED AND PHOTOS TAKEN BEFORE DISCHARGE.
[2022-11-26] MEDS ORDERED: VANCOMYCIN LEVEL IV ONE (06:30)
== END 2022-11-25 14:00 | disposition home health service (06) | DRG 603 ==
LOC: ER 06:42 → ED HOLD 11:50 → ORTHO 4S 16:55
PROVIDERS: ADMIT Family Medicine; ATTEND Family Medicine
DX: L03.115 Cellulitis of right lower limb (principal); J44.1 Chronic obstructive pulmonary disease with (acute) exacerbation; Z68.41 Body mass index [BMI] 40.0-44.9, adult; N13.8 Other obstructive and reflux uropathy; E66.01 Morbid (severe) obesity due to excess calories; L03.116 Cellulitis of left lower limb; E78.00 Pure hypercholesterolemia, unspecified; G89.29 Other chronic pain; K80.20 Calculus of gallbladder without cholecystitis without obstruction; I50.9 Heart failure, unspecified; B95.62 Methicillin resistant Staphylococcus aureus infection as the cause of diseases classified elsewhere; K76.0 Fatty (change of) liver, not elsewhere classified; G47.33 Obstructive sleep apnea (adult) (pediatric); N40.1 Benign prostatic hyperplasia with lower urinary tract symptoms; N18.9 Chronic kidney disease, unspecified; Z79.1 Long term (current) use of non-steroidal anti-inflammatories (NSAID); Z79.899 Other long term (current) drug therapy; Z99.81 Dependence on supplemental oxygen; Z99.3 Dependence on wheelchair; Z87.891 Personal history of nicotine dependence
CPT/HCPCS: 36415; 71045; 73701; 76770; 80053; 80061; 80202; 81003; 82948; 83036; 83605; 83735; 83880; 84145; 84443; 84484; 85025; 87040; 87081; 87502; 87503; 93306; 93970; 94640; 94760; 97161; 97530; 99285; A4615; A6223; A6258; A6446; A6449; G0378; J1170; J1644; J1815; J1940; J2543; J3370; J3490; J7030; J7050; Q9967

== ENCOUNTER 2023-02-10 09:09 | Emergency (ER) | payer OTHER, MEDICARE, MEDICAID ==
[~2023-02-10] VITALS: Ht 193 cm; Wt 186.4 kg
[~2023-02-10 09:09] MED LIST changes: -CYCL-1 PO; -IBUP-1985 PO; +LINE600T14 PO; +POTA-206 PO; -TRAM1TAB7 PO
[2023-02-10 09:10] VITALS: TEMP 97.9
[2023-02-10] MEDS ORDERED: morphine 4 MG/ML inj SYRINge IV ONE (10:00)
[2023-02-10 11:01] LABS: BASOPHILS # (AUTO) 0.1 X10'3 (0-0.2); BASOPHILS % (AUTO) 0.6 % (0-1); EOSINOPHILS # (AUTO) 0.3 X10'3 (0-0.9); EOSINOPHILS % (AUTO) 3.6 % (0-6); HEMATOCRIT 41.5 % (42.0-52.0); HEMOGLOBIN 13.5 g/dl (14.0-17.9); LYMPHOCYTES # (AUTO) 1.6 X10'3 (1.1-4.8); LYMPHOCYTES % (AUTO) 17.7 % (21-51); MEAN CORPUSCULAR HEMOGLOBIN 29.1 PG (27.0-31.0); MEAN CORPUSCULAR HGB CONC 32.7 g/dL (33.0-36.5); MEAN PLATELET VOLUME 6.8 FL (7.4-10.4); MONOCYTES # (AUTO) 0.9 X10'3 (0-0.9); MONOCYTES % (AUTO) 10.4 % (2-12); NEUTROPHILS # (AUTO) 6.2 X10'3 (1.8-7.7); NEUTROPHILS % (AUTO) 67.7 % (42-75); PLATELET COUNT 459 X10'3 (140-440); RED BLOOD COUNT 4.66 X10'6 (4.70-6.10); RED CELL DISTRIBUTION WIDTH 15.7 % (11.5-14.5); WHITE BLOOD COUNT 9.1 X10'3 (4.5-11.0)
[2023-02-10 11:07] LABS: D-DIMER 0.67 MG/L FEU (0-0.50)
[2023-02-10 11:22] LABS: ALANINE AMINOTRANSFERASE 36 U/L (12-78); ALBUMIN 3.3 G/DL (3.4-5.0); ALBUMIN/GLOBULIN RATIO 0.7 (1.1-1.5); ALKALINE PHOSPHATASE 77 IU/L (46-116); ANION GAP 6 (8-16); ASPARTATE AMINO TRANSFERASE 30 U/L (10-37); BILIRUBIN,TOTAL 0.4 MG/DL (0.1-1.0); BLOOD UREA NITROGEN 14 MG/DL (7-18); BUN/CREATININE RATIO 10.9 (10.0-20.0); CALCIUM 9.1 MG/DL (8.5-10.1); CHLORIDE 103 MMOL/L (99-107); CREATININE 1.28 MG/DL (0.60-1.10); GLUCOSE 76 MG/DL (70-104); SODIUM 142 MMOL/L (135-145); TOTAL CARBON DIOXIDE 32.7 MMOL/L (24-32); TOTAL PROTEIN 7.9 G/DL (6.4-8.2); eCRCL 74 ML/MIN; eGFR 57 ML/MIN
[2023-02-10 11:26] LABS: PRO BRAIN NATRIURETIC PEPTIDE 97 PG/ML (0-125)
[2023-02-10] MEDS ORDERED: silver sulfadiazine cream 50gm TP ONE (12:25)
[2023-02-10] MEDS ORDERED: SILV50CR31 TP (12:27)
[2023-02-10 15:53] VITALS: BP 120/80; PULSE 103; RESP 18; O2SAT 95
== END 2023-02-10 15:55 | disposition home or self-care (01) ==
LOC: ER 09:10
DX: I87.2 Venous insufficiency (chronic) (peripheral) (principal)
CPT/HCPCS: 36415; 71045; 80053; 83605; 83880; 84145; 84484; 85025; 85379; 87040; 93005; 93971; 96374; 99285; J2270; A6446; A6449